=== PATIENT | female | born 1980 | race Caucasian/White ===

== ENCOUNTER 2020-03-19 12:36 | Emergency (ER) | payer OTHER ==
[~2020-03-19] VITALS: Ht 157.5 cm; Wt 105.0 kg
[2020-03-19 13:33] VITALS: BP 202/117
[2020-03-19] MEDS ORDERED: ACETAMINOPHEN 325MG TABLET PO STA (13:33)
[2020-03-19] MEDS ORDERED: IBUPROFEN 600MG TABLET PO STA (13:33)
[2020-03-19 16:29] LABS: BG CARBOXYHEMOGLOBIN 0.2 % (0.5-1.5); BG DEOXYHEMOGLOBIN 2.7 % (0.0-5.0); BG FRACTION INSPIRED OXYGEN 21; BG HCO3 ACT 17.1 mmol/L (22.0-26.0); BG METHEMOGLOBIN 0.3 % (0.0-1.5); BG OXYGEN SATURATION 97.3 % (92.0-98.5); BG OXYHEMOGLOBIN 96.8 % (94.0-97.0); BG PCO2 30.9 mmHg (35.0-45.0); BG PH 7.362 (7.350-7.450); BG PO2 106.6 mmHg (75.0-100.0); BG SAMPLE SITE RIGHT BRACHIAL; BG TOTAL HEMOGLOBIN 14.1 g/dL (12.0-18.0); BG VENT MODE ROOM AIR
== END 2020-03-19 20:49 | disposition left against medical advice (07) ==
LOC: ER 12:36
DX: R06.03 Acute respiratory distress (principal); B34.9 Viral infection, unspecified; I16.0 Hypertensive urgency; E11.9 Type 2 diabetes mellitus without complications; E78.00 Pure hypercholesterolemia, unspecified; Z98.890 Other specified postprocedural states
CPT/HCPCS: 36600; 71045; 82375; 82805; 93005; 99285